=== PATIENT | male | born 1970 | race Caucasian/White ===

== ENCOUNTER 2022-04-06 20:03 | Emergency (ER) | payer OTHER ==
[~2022-04-06] VITALS: Ht 175.3 cm; Wt 83.9 kg
[~2022-04-06 20:03] MED LIST: CODE BLUE PARTICIPANT 1 EA MISC MC ONE; EPINEPHrine PFS 0.1 MG/ML SYR IVP ONE; SODIUM BICARBONATE 8.4% PFS 50 MEQ/50 ML SYR IVP ONE
--- NOTE | 2022-04-06 20:03 | NUR ---
ACLS CONTINUED. REFER TO CODE BLUE SHEET.
--- NOTE | 2022-04-06 20:03 | NUR ---
PT BROUGHT TO BED 7 VIA [facility]
--- NOTE | 2022-04-06 20:03 | NUR ---
52 y/o m biba from home full arrest. last known well at 1600. found unresponsive at 1930. CPR iniated at 1937 by EMS. 3 epi, 1g calcium, and 1 amp bicarb given prehospital. per ems pt missed dialysis twice. pt had IO placed to [facility]. BS 87 prehospital. last dialysis was thursday04/01/22, has usual schedule of MWF. medhx- ERSD, HLYD, DM nka
--- NOTE | 2022-04-06 20:21 | NUR ---
time of called at [address] Valdivia.
--- NOTE | 2022-04-06 20:54 | NUR ---
[facility] TOMMY WHO STATED A DEPUTY WOULD GIVE A CALL BACK.
--- NOTE | 2022-04-06 20:56 | NUR ---
CALLED [facility] S/W MARNIE WHO PROVIDED REFERENCE #:[id number]. PT IS ELIGIBLE FOR DONATION.
--- NOTE | 2022-04-06 21:10 | NUR ---
CALLED [phone] TO [facility] PCP [facility] TO NOTIFY OF PT EXPIRATION, S/W MICHAEL WHO STATED SHE WOULD LEAVE A MESSAGE FOR THIS PROVIDER.
--- NOTE | 2022-04-06 21:38 | NUR ---
[facility] CALL FROM [facility] TO PROVIDED INFORMATION AND PT REMAINS RELEASED AT THIS TIME. CASE #[id number] PROVIDED.
--- NOTE | 2022-04-06 22:45 | NUR ---
CALLED [facility]ILL[facility] PALMA S/W BUSHRA TO PROVIDED PT INFORMATION. PACHECO BASILIO WOULD GIVE A CALLBACK WITH [facility] FOR PICKUP.
--- NOTE | 2022-04-07 00:30 | NUR ---
CALLED LILLIAM FOR AN UPDATED ETA S/W CITLALY WHO STATED ETA WOULD BE 45 MINS TO 1 HOUR.
--- NOTE | 2022-04-07 01:24 | NUR ---
[facility] AT BEDSIDE FOR REMAIN PICKUP.
--- NOTE | 2022-04-07 01:33 | NUR ---
NOTIFIED KELVIN, , THAT PT REMAINS HAVE BEEN PICKUP BY [facility].
== END 2022-04-06 20:21 ==
LOC: MED 20:03
DX: I46.9 Cardiac arrest, cause unspecified (principal); I10 Essential (primary) hypertension; F03.90 Unspecified dementia, unspecified severity, without behavioral disturbance, psychotic disturbance, mood disturbance, and anxiety; N18.9 Chronic kidney disease, unspecified; Z79.899 Other long term (current) drug therapy; Z98.890 Other specified postprocedural states
CPT/HCPCS: 92950; 99291; J0171